=== PATIENT | female | born 1965 | race American Indian/Alaskan Native ===

== ENCOUNTER 2016-11-14 02:29 | Inpatient (IN) | payer BC ==
[2016-11-14 04:13] LABS: Basophils % (Auto) 0.2 % (0.0-1.8); Eosinophils % (Auto) 0.4 % (0.0-4.3); Hemoglobin 12.8 gm/dl (10.1-14.3); White Blood Count 12.6 K/mm3 (4.5-11.0)
[2016-11-14 04:34] LABS: Anion Gap 18 mmol/L; BUN/Creatinine Ratio 12.85; Blood Urea Nitrogen 9 mg/dL (7-17); Calcium 9.1 mg/dL (8.4-10.2); Carbon Dioxide 27 mmol/L (22-30); Chloride 97.8 mmol/L (98-107); Glucose 408 mg/dL (65-100); Hematocrit 39.3 % (30.3-42.9); Mean Corpuscular HGB Conc 32 % (30-34); Mean Corpuscular Hemoglobin 26 pg (28-32); Mean Corpuscular Volume 82 fl (79-97); Platelet Count 211 K/mm3 (140-440); Potassium 4.5 mmol/L (3.6-5.0); Red Blood Count 4.77 M/mm3 (3.65-5.03); Red Cell Distribution Width 14.5 % (13.2-15.2); Sodium 138 mmol/L (137-145)
[2016-11-14] MEDS ORDERED: ZOFRAN IV ONE (05:10)
[2016-11-14] MEDS ORDERED: MORPHINE IV ONE (05:10)
--- NOTE | 2016-11-14 05:10 | Emergency Department Report ---
ED Chest Pain HPI - General Chief Complaint: Chest Pain Stated Complaint: CHEST PAIN Time Seen by Provider: 11/14/16 04:13 Source: patient, old records reviewed (no previous record for review) Mode of arrival: Stretcher Limitations: No Limitations - History of Present Illness Initial Comments: 51-year-old female with a past medical history of CVA without residual defects, diabetes, GERD, hypertension, CAD with stent 2 presents to the hospital with chest pain that woke him from sleep. Pain is in the middle of the chest radiates to the left side. Described as pressure, intermittent, rated 8/10 intensity, and radiating to the back. No reported aggravating or alleviating factors. Positive social shortness of breath and nausea without vomiting. Patient's compliant with her medication. She received nitroglycerin and aspirin in route with minimal improvement. 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 Last cardiac cath was 2004 during her last heart attack. - Related Data Allergies Allergy/AdvReac Type Severity Reaction Status Date / Time Penicillins Allergy Shortness Verified 11/14/16 03:28 of Breath Sulfa (Sulfonamide Allergy Rash Verified 11/14/16 03:28 Antibiotics) LAURENT score - Laurent Score Age > 65: (0) No Aspirin use within the Past 7 Days: (1) Yes 3 or more CAD Risk Factors: (0) No 2 or more Angina events in past 24 hrs: (1) Yes Known CAD with more than 50% Stenosis: (1) Yes Elevated Cardiac Markers: (0) No ST Deviation Greater than 0.5mm: (0) No LAURENT Score: 3 ED Review of Systems ROS: Stated complaint: CHEST PAIN Other details as noted in HPI Comment: All other systems reviewed and negative Other: Constitutional: No fevers chills Eyes: No eye pain visual changes ENT: No ear pain or throat pain Neck: Denies pain Respiratory: Denies cough wheezing Cardiovascular: as per hpi GI: Denies abdominal pain : Denies dysuria Musculoskeletal: Denies back pain Skin: Denies rash, lesions, erythema Neurologic: Denies headache, numbness, weakness Psychiatric: Denies suicidal ideation, hallucinations ED Past Medical Hx - Past Medical History Previous Medical History?: Yes Hx Hypertension: Yes Hx CVA: Yes (no residual deficits 2012) Hx Diabetes: Yes Hx GERD: Yes Hx HIV: Yes - Surgical History Past Surgical History?: Yes Additional Surgical History: tubal ligation - Social History Smoking Status: Never Smoker Substance Use Type: None ED Physical Exam - General Limitations: No Limitations - Other Other exam information: General: No limitations, patient is alert in no acute distress Head exam: Atraumatic, normocephalic Eyes exam: Normal appearance, pupils equal reactive to light, extraocular movements intact ENT: Moist mucous membrane, normal oropharynx Neck exam: Normal inspection, full range of motion, no meningismus nontender Respiratory exam: Clear to auscultation bilateral, no wheezes, rales, crackles Cardiovascular: Mild tachycardic regular rhythm, sternal chest wall tenderness Abdomen: Soft, nondistended, and nontender, with normal bowel sounds, no rebound, or guarding Extremity: Full range of motion normal inspection no deformity, no calf tenderness or edema Back: Normal Inspection, full range of motion, no tenderness Neurologic: Alert, oriented x3, cranial nerves intact, no motor or sensory deficit Psychiatric: normal affect, normal mood Skin: Warm, dry, intact ED Course Vital Signs 11/14/16 11/14/16 11/14/16 03:19 03:20 03:28 Temperature 98.8 F Pulse Rate 114 H Respiratory 18 Rate Blood Pressure 159/86 159/86 O2 Sat by Pulse 92 93 99 Oximetry 11/14/16 11/14/16 03:30 03:33 Temperature Pulse Rate 108 H 106 H Respiratory 16 Rate Blood Pressure 152/83 O2 Sat by Pulse 95 Oximetry - Reevaluation(s) Reevaluation #1: 11/14/16 05:10 Patient resting but chest wall is tender. Morphine and Zofran ordered for pain. ED Medical Decision Making - Lab Data Result diagrams: 11/14/16 03:59 11/14/16 03:59 Lab Results 11/14/16 11/14/16 Range/Units 03:59 03:59 WBC 12.6 H (4.5-11.0) K/mm3 RBC 4.77 (3.65-5.03) M/mm3 Hgb 12.8 (10.1-14.3) gm/dl Hct 39.3 (30.3-42.9) % MCV 82 (79-97) fl MCH 26 L (28-32) pg MCHC 32 (30-34) % RDW 14.5 (13.2-15.2) % Plt Count 211 (140-440) K/mm3 Lymph % (Auto) 13.1 L (13.4-35.0) % [place] % (Auto) 5.9 (0.0-7.3) % Eos % (Auto) 0.4 (0.0-4.3) % Baso % (Auto) 0.2 (0.0-1.8) % Lymph # 1.7 (1.2-5.4) K/mm3 [place] # 0.7 (0.0-0.8) K/mm3 Eos # 0.0 (0.0-0.4) K/mm3 Baso # 0.0 (0.0-0.1) K/mm3 Seg Neutrophils % 80.4 H (40.0-70.0) % Seg Neutrophils # 10.2 H (1.8-7.7) K/mm3 Sodium 138 (137-145) mmol/L Potassium 4.5 (3.6-5.0) mmol/L Chloride 97.8 L (98-107) mmol/L Carbon Dioxide 27 (22-30) mmol/L Anion Gap 18 mmol/L BUN 9 (7-17) mg/dL Creatinine 0.7 (0.7-1.2) mg/dL Estimated GFR > 60 ml/min BUN/Creatinine Ratio 12.85 % Glucose 408 H (65-100) mg/dL Calcium 9.1 (8.4-10.2) mg/dL Troponin T < 0.010 (0.00-0.029) ng/mL - EKG Data -: EKG Interpreted by Me (sinus tachy 107) - EKG Data When compared to previous EKG there are: previous EKG unavailable - Medical Decision Making Intermittent patient to the hospital for chest pain given significant cardiac history. Regular insulin, Morphine, zofran, and Nitropaste ordered - Differential Diagnosis mi, stable angina, costochondritis, PE, 8 which is Critical Care Time: No Critical care attestation.: If time is entered above; I have spent that time in minutes in the direct care of this critically ill patient, excluding procedure time. ED Disposition Clinical Impression: Chest pain, Hx of heart artery stent, HTN (hypertension), Diabetes, Obesity Disposition: OP ADMITTED IP TO THIS HOSP Is pt being admited?: Yes Condition: Stable Time of Disposition: 05:14 (Dr Kent/hosp)
[2016-11-14] MEDS ORDERED: NITRO-BID 2% TP ONE ×2 (05:13→06:32)
[2016-11-14] MEDS ORDERED: MORPHINE ONE (06:28)
[2016-11-14] MEDS ORDERED: NOVOLOG SUB-Q ONE (06:29)
[2016-11-14] MEDS ORDERED: ZOFRAN ONE (06:31)
--- NOTE | 2016-11-14 07:12 | Admit Criteria Form ---
Admission Criteria Documentation: CHEST PAIN Clinical Indications for Admission to Inpatient Care (Place 'X' for any and all applicable criteria): Admission is indicated for chest pain and ANY ONE of the following(1)(2)(3)(4)(5 ): [ ]I. Angina with acute coronary syndrome (Also use Myocardial Infarction or Angina guideline) [ ]II. Hemodynamic instability [X]III. Angina needing acute intervention as indicated by ALL of the following( 11)(12): [X]a) Unstable angina is present as indicated by angina that is ANY ONE of the following: [ ]i) New onset [X]ii) Nocturnal [ ]iii) Prolonged at rest [ ]iv) Progressive [X]b) Angina warrants acute intervention as indicated by ANY ONE of the following: [ ]i Recurrent angina (e.g, not responding as previously to treatment) [X]ii) Angina at rest or with low-level activities despite initial medical therapy [ ]iii) New or presumably new ST-segment depression on ECG [ ]iv) Signs or symptoms of heart failure (eg, dyspnea, pulmonary edema) [ ]v) New or worsening mitral regurgitation [ ]vi) Hemodynamic instability [ ]vii) Dangerous arrhythmia (eg, sustained ventricular tachycardia) [ ]viii) History of percutaneous coronary intervention within 6 months [ ]ix) History of coronary artery bypass graft surgery [X]x) LAURENT risk score of 2 or greater[A] [X]xi) History of Diabetes(14) [ ]xii) High-risk cardiac ischemia findings on noninvasive testing (e.g, echocardiogram, treadmill testing, nuclear scan) [ ]xiii) Chronic renal insufficiency (ie, estimated GFR less than 60 mL/min/1.732m) [ ]xiv) Left ventricular ejection fraction less than 40% [ ]IV. Evidence of CT (eg, cardiac biomarkers positive, ST-segment elevation on ECG) also use Myocardial Infarction Criteria Form. [ ]V. Pulmonary edema [ ]. Respiratory distress [ ]VII. Chest pain indicative of serious diagnosis other than coronary artery disease (eg, aortic dissection) [ ]VIII. Contraindications and/or Inappropriate clinical situations for Observational Care in patients with Chest Pain, when ANY ONE of the following is required: [ ]a) Patient with risk factor for pulmonary embolism, acute coronary syndrome and myocardial infarction (18) [ ]b) Patient with Pulmonary embolism require an average LOS of 4.3 days, therefore emergency department observation management is inappropriate 18,23 [ ]c) Painful condition/s in the elderly, have the highest rate of recidivism after emergency department observation management (10.8%) 20,21,22 [ ]d) Elevated cardiac biomarker requires intensive and exhaustive care (19) [ ]IX. General contraindications and/or Inappropriate clinical situations for Observational Care in patients with Chest Pain, when ANY ONE of the following is required: [ ]a) Prediction of prolongation of LOS based on ANY ONE of the following may be considered as a contraindication for observational care 2, 3, 4, 5, 6, 7, 8, 9, 10, 11 [ ]i) Age > 65 yrs. [ ]ii) Patient arriving by ambulance [ ]iii) Patient with high acuity [ ]iv) Patient requiring vital sign monitoring [ ]v) Patient on IV medication [ ]b) Systolic blood pressures 180mmHg 3,12 [ ]c) Patient with altered mental status including delirium and other alteration of consciousness, (3) [ ]d) Patient whose discharge disposition will be to a [facility] home or rehabilitation home should not be managed in Emergency Department Observation Unit. CMS rule requires 3 days hospital stay before such placement. 3,13 [ ]e) Patient with failure to thrive due to broad array of etiologies 3,16,17 [ ]f) Inability to ambulate 3,14 Extended stay beyond goal length of stay may be needed for (1)(28): [ ]a) Specific condition diagnosed after evaluation (eg, pulmonary embolism, aortic dissection) [ ]b) Unstable angina [ ]c) Continued suspicion of acute coronary syndrome with inability to complete needed cardiac evaluation (eg, patient clinically unable to undergo stress testing) [ ]d) Myocardial infarction (Contents from ANGINA and CHEST PAIN clinical indications for admission to inpatient care have been integrated in this form) The original [employer] content created by [employer] has been revised. The portions of the content which have been revised are identified through the use of italic text or in bold, and [facility] has neither reviewed nor approved the modified material. All other unmodified content is copyright [employer]. Please see references footnoted in the original [facility] edition 2016 Admission Criteria Met: Yes
--- NOTE | 2016-11-14 07:24 | XRay Report ---
AP CHEST: HISTORY: chest pain AP view of the chest demonstrates a normal mediastinal and cardiac contour with clear lungs and normal bony and soft tissue structures. IMPRESSION: Unremarkable AP chest.
[2016-11-14] MEDS ORDERED: MORPHINE IV PRN (12:13)
[2016-11-14] MEDS ORDERED: DULCOLAX PR PRN (12:13)
[2016-11-14] MEDS ORDERED: ZOFRAN IV PRN (12:13)
[2016-11-14] MEDS ORDERED: SODIUM CHLORIDE FLUSH SYRINGE 10 ML IV PRN (12:13)
[2016-11-14] MEDS ORDERED: TYLENOL PO PRN (12:13)
[2016-11-14] MEDS ORDERED: MILK OF MAGNESIA PO PRN (12:13)
[2016-11-14] MEDS ORDERED: D50W (25GM) IV PRN ×2 (12:13→18:36)
--- NOTE | 2016-11-14 12:20 | History and Physical Report ---
History of Present Illness Date of examination: 11/14/16 Date of admission: 11/14/16 05:15 Chief complaint: cp History of present illness: 51-year-old female with a past medical history of CVA without residual defects, diabetes, GERD, hypertension, CAD with stent 2 presents to the hospital with chest pain that woke him from sleep. Pain is in the middle of the chest radiates to the left side. The pain is described as pressure, intermittent, rated 8/10 intensity and radiating to the back. No reported aggravating or alleviating factors. Patient reports some associated shortness of breath, PND and orthopnea. Patient also reports some mild lower extremity swelling. Patient's states that she has compliant with her medication. She received nitroglycerin and aspirin in route with minimal improvement. Patient reports CA 2, stents 2 in 2006. Patient states that her last stress test was last summer and noted be normal. 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 Neeraj Collazo. Past History Past Medical History: diabetes, GERD, hypertension Past Surgical History: denies: PTCA (stent X 2) Social history: no significant social history Family history: no significant family history Medications and Allergies Allergies Allergy/AdvReac Type Severity Reaction Status Date / Time Penicillins Allergy Shortness Verified 11/14/16 03:28 of Breath Sulfa (Sulfonamide Allergy Rash Verified 11/14/16 03:28 Antibiotics) Home Medications Medication Instructions Recorded Confirmed Last Taken Type Aspirin [Aspirin TAB] 325 mg PO QDAY 11/14/16 11/14/16 Unknown History AtorvaSTATin [Lipitor] 40 mg PO QHS 11/14/16 11/14/16 Unknown History Furosemide [Lasix TAB] 40 mg PO QDAY 11/14/16 11/14/16 Unknown History Lisinopril [Zestril] 40 mg PO DAILY 11/14/16 11/14/16 Unknown History Potassium Chloride [K-Dur] 10 meq PO QDAY 11/14/16 11/14/16 Unknown History metFORMIN [Glucophage] 500 mg PO BID 11/14/16 11/14/16 Unknown History Review of Systems All systems: negative Exam - Constitutional Vitals: Temp Pulse Resp BP Pulse Ox 98.6 F 97 H 18 121/58 93 11/14/16 10:59 11/14/16 10:59 11/14/16 10:59 11/14/16 10:59 11/14/16 10:59 General appearance: Present: no acute distress, well-nourished - EENT Eyes: Present: PERRL ENT: hearing intact, clear oral mucosa - Neck Neck: Present: supple, normal ROM - Respiratory Respiratory effort: normal Respiratory: bilateral: CTA - Cardiovascular Heart Sounds: Present: S1 & S2. Absent: rub, click - Extremities Extremities: pulses symmetrical, No edema Peripheral Pulses: within normal limits - Abdominal General gastrointestinal: Present: soft, non-tender, non-distended, normal bowel sounds Female genitourinary: Present: normal - Integumentary Integumentary: Present: clear, warm, dry - Musculoskeletal Musculoskeletal: gait normal, strength equal bilaterally - Psychiatric Psychiatric: appropriate mood/affect, intact judgment & insight - Neurologic Neurologic: CNII-XII intact, moves all extremities Results - Labs CBC & Chem 7: 11/14/16 03:59 11/14/16 03:59 Labs: Laboratory Last Values WBC 12.6 K/mm3 (4.5-11.0) H 11/14/16 03:59 RBC 4.77 M/mm3 (3.65-5.03) 11/14/16 03:59 Hgb 12.8 gm/dl (10.1-14.3) 11/14/16 03:59 Hct 39.3 % (30.3-42.9) 11/14/16 03:59 MCV 82 fl (79-97) 11/14/16 03:59 MCH 26 pg (28-32) L 11/14/16 03:59 MCHC 32 % (30-34) 11/14/16 03:59 RDW 14.5 % (13.2-15.2) 11/14/16 03:59 Plt Count 211 K/mm3 (140-440) 11/14/16 03:59 Lymph % (Auto) 13.1 % (13.4-35.0) L 11/14/16 03:59 [place] % (Auto) 5.9 % (0.0-7.3) 11/14/16 03:59 Eos % (Auto) 0.4 % (0.0-4.3) 11/14/16 03:59 Baso % (Auto) 0.2 % (0.0-1.8) 11/14/16 03:59 Lymph # 1.7 K/mm3 (1.2-5.4) 11/14/16 03:59 [place] # 0.7 K/mm3 (0.0-0.8) 11/14/16 03:59 Eos # 0.0 K/mm3 (0.0-0.4) 11/14/16 03:59 Baso # 0.0 K/mm3 (0.0-0.1) 11/14/16 03:59 Seg Neutrophils % 80.4 % (40.0-70.0) H 11/14/16 03:59 Seg Neutrophils # 10.2 K/mm3 (1.8-7.7) H 11/14/16 03:59 Sodium 138 mmol/L (137-145) 11/14/16 03:59 Potassium 4.5 mmol/L (3.6-5.0) 11/14/16 03:59 Chloride 97.8 mmol/L (98-107) L 11/14/16 03:59 Carbon Dioxide 27 mmol/L (22-30) 11/14/16 03:59 Anion Gap 18 mmol/L 11/14/16 03:59 BUN 9 mg/dL (7-17) 11/14/16 03:59 Creatinine 0.7 mg/dL (0.7-1.2) 11/14/16 03:59 Estimated GFR > 60 ml/min 11/14/16 03:59 BUN/Creatinine Ratio 12.85 % 11/14/16 03:59 Glucose 408 mg/dL (65-100) H 11/14/16 03:59 POC Glucose 421 (70-105) H 11/14/16 06:25 Calcium 9.1 mg/dL (8.4-10.2) 11/14/16 03:59 Troponin T < 0.010 ng/mL (0.00-0.029) 11/14/16 10:14 Assessment and Plan Assessment and plan: 1. Chest pain. Patient with history of coronary artery disease (s/p CA ans stents). We will plan for stress thallium and echocardiogram. Cardiology consultation. 2. Hypertension. Resume antihypertensive medications. 3. Diabetes mellitus type 2. Continue Accu-Cheks and sliding scale as well. 4. GERD. Continue medications. 5. DVT prophylaxis.
[2016-11-14 13:46] LABS: Creatine Kinase 54 units/L (30-135)
[2016-11-14 13:55] LABS: Creatine Kinase MB < 1.0 ng/mL (0.0-4.0)
[2016-11-14] MEDS ORDERED: FLUARIX QUAD 2016-2017(36 MOS+) IM ONE (14:00)
--- NOTE | 2016-11-14 14:37 | Consultation ---
History of Present Illness Consult date: 11/14/16 Requesting physician: SONI MAO Consult reason: chest pain History of present illness: The patient is a 51-year-old female with a history of CAD s/p PCI, hypertension , diabetes, GERD who presented with complaints of chest pain that awoke her from sleep this morning. Pain is in the middle of the chest and radiates to her left chest and back. Pain is intermittent, described as "pressure." Associated with shortness of breath and orthopnea. No exacerbating or relieving factors. Troponin negative x 3. Cardiac PET done at [facility] 08/2012 was negative for ischemia. Past History Past Medical History: CAD, diabetes, GERD, hypertension, hyperlipidemia Past Surgical History: PTCA (stent X 2) Social history: no significant social history, full code. denies: smoking, alcohol abuse, prescription drug abuse, IV drug use Family history: no significant family history Medications and Allergies Allergies Allergy/AdvReac Type Severity Reaction Status Date / Time Penicillins Allergy Shortness Verified 11/14/16 03:28 of Breath Sulfa (Sulfonamide Allergy Rash Verified 11/14/16 03:28 Antibiotics) Home Medications Medication Instructions Recorded Confirmed Last Taken Type Aspirin [Aspirin TAB] 325 mg PO QDAY 11/14/16 11/14/16 Unknown History AtorvaSTATin [Lipitor] 40 mg PO QHS 11/14/16 11/14/16 Unknown History Furosemide [Lasix TAB] 40 mg PO QDAY 11/14/16 11/14/16 Unknown History Lisinopril [Zestril] 40 mg PO DAILY 11/14/16 11/14/16 Unknown History Potassium Chloride [K-Dur] 10 meq PO QDAY 11/14/16 11/14/16 Unknown History metFORMIN [Glucophage] 500 mg PO BID 11/14/16 11/14/16 Unknown History Active Meds: Active Medications Acetaminophen (Tylenol) 650 mg PO Q4H PRN PRN Reason: Pain MILD(1-3)/Fever >100.5/HASTINGS Bisacodyl (Dulcolax) 10 mg DE QDAY PRN PRN Reason: Constipation unrelieved by MOM Dextrose (D50w (25gm)) 50 ml IV PRN PRN PRN Reason: Hypoglycemia Enoxaparin Sodium (Lovenox) 40 mg SUB-Q QDAY JACKSON Famotidine (Pepcid) 20 mg IV BID [place] Magnesium Hydroxide (Milk Of Magnesia) 30 ml PO Q4H PRN PRN Reason: Constipation Morphine Sulfate (Morphine) 2 mg IV Q4H PRN PRN Reason: Pain, Moderate (4-6) Ondansetron HCl (Zofran) 4 mg IV Q8H PRN PRN Reason: N/V unrelieved by Reglan Sodium Chloride (Sodium Chloride Flush Syringe 10 Ml) 10 ml IV PRN PRN PRN Reason: LINE FLUSH Review of Systems Constitutional: no fever, no chills Ears, nose, mouth and throat: no nasal congestion, no nasal discharge, no sinus pressure Cardiovascular: chest pain, orthopnea, shortness of breath, no palpitations Respiratory: shortness of breath, no cough, no congestion, no wheezing Gastrointestinal: no vomiting, no diarrhea, no constipation Genitourinary Female: no dysuria, no urgency Musculoskeletal: no neck stiffness, no neck pain, no myalgias Integumentary: no rash, no pruritis Neurological: no parathesias, no numbness, no tingling Endocrine: no cold intolerance, no heat intolerance Hematologic/Lymphatic: no easy bruising, no easy bleeding Allergic/Immunologic: no urticaria, no wheezing Physical Examination Last Vital Signs Temp 98.6 F 11/14/16 10:59 Pulse 97 H 11/14/16 10:59 Resp 18 11/14/16 10:59 BP 121/58 11/14/16 10:59 Pulse Ox 93 11/14/16 10:59 General appearance: no acute distress, obese HEENT: Positive: Normocephaly, Mucus Membranes Moist Neck: Positive: neck supple, trachea midline Cardiac: Positive: Reg Rate and Rhythm, S1/S2 Lungs: Positive: clear to auscultation Neuro: Positive: Grossly Intact Abdomen: Positive: Soft, Active Bowel Sounds. Negative: Tender Skin: Positive: Clear. Negative: Rash Extremities: Present: normal. Absent: edema Results 11/14/16 03:59 11/14/16 03:59 Cardiac Enzymes 11/14/16 Range/Units 12:41 CK-MB (CK-2) < 1.0 (0.0-4.0) ng/mL - Imaging and Cardiology EKG: image reviewed EKG interpretations - Telemetry EKG Rhythm: Sinus Rhythm - EKG Sinus rhythms and dysrhythmias: sinus tachycardia Assessment and Plan Chest pain troponin negative x 3 no acute EKG changes PET [facility] 08/2012: no ischemia Lexiscan thallium stress test in am CAD s/p PCI (2006) continue ASA, statin Hypertension stable continue lisinopril Diabetes Obesity Lexiscan thallium stress test in am. Further recommendations to follow. The patient has been seen in conjunction with Dr. Kenney who agrees with the assessment and plan of care. Thank you Dr. Mao for allowing us to participate in the care of these patients.
[2016-11-14 17:12] LABS: Creatine Kinase 58 units/L (30-135)
[2016-11-14 17:17] LABS: Creatine Kinase MB < 1.0 ng/mL (0.0-4.0)
[2016-11-14 19:21] LABS: Creatine Kinase 54 units/L (30-135)
[2016-11-14 19:36] LABS: Creatine Kinase MB < 1.0 ng/mL (0.0-4.0)
[2016-11-14] MEDS: PEPCID IV SCH (21:14)
[2016-11-14] MEDS: NOVOLOG SUB-Q SCH (22:40)
[2016-11-15 08:16] LABS: Basophils % (Auto) 0.2 % (0.0-1.8); Hematocrit 38.2 % (30.3-42.9); Hemoglobin 11.8 gm/dl (10.1-14.3); Mean Corpuscular HGB Conc 31 % (30-34); Mean Corpuscular Volume 83 fl (79-97); Platelet Count 199 K/mm3 (140-440); Red Cell Distribution Width 14.7 % (13.2-15.2); White Blood Count 8.5 K/mm3 (4.5-11.0)
[2016-11-15 08:22] LABS: Anion Gap 15 mmol/L; BUN/Creatinine Ratio 15.71; Blood Urea Nitrogen 11 mg/dL (7-17); Carbon Dioxide 27 mmol/L (22-30); Chloride 100.3 mmol/L (98-107); Glucose 222 mg/dL (65-100); Potassium 4.1 mmol/L (3.6-5.0); Sodium 138 mmol/L (137-145)
[2016-11-15 08:23] LABS: Mean Corpuscular Hemoglobin 26 pg (28-32)
--- NOTE | 2016-11-15 08:46 | Progress Note ---
Assessment and Plan Chest pain troponin negative x 3 no acute EKG changes PET MPI 08/2012: no ischemia stress MPI: small, mild fixed mid inferior wall defect, no significant ischemia CAD s/p PCI (2006) continue ASA, statin Hypertension stable continue lisinopril Diabetes Obesity Stress test revealed a small, mild fixed mid inferior wall defect. Recommend continuing medical management and aggressive risk factor modification. Patient may be discharged from a cardiac standpoint. The patient has been seen in conjunction with Dr. North who agrees with the assessment and plan of care. Subjective Date of service: 11/15/16 Principal diagnosis: chest pain Interval history: The patient is resting comfortably in bed. She continues to c/o intermittent chest pain. Sinus rhythm on the monitor. Objective Last Vital Signs Temp 98.6 F 11/15/16 08:00 Pulse 95 H 11/15/16 08:00 Resp 20 11/15/16 08:00 BP 125/74 11/15/16 08:00 Pulse Ox 95 11/15/16 08:00 - Physical Examination General: No Apparent Distress HEENT: Positive: Normocephaly, Mucus Membranes Moist Neck: Positive: neck supple, trachea midline Cardiac: Positive: Reg Rate and Rhythm, S1/S2 Lungs: Positive: clear to auscultation Neuro: Positive: Grossly Intact Abdomen: Positive: Soft, Active Bowel Sounds. Negative: Tender Skin: Positive: Clear. Negative: Rash Extremities: Present: normal. Absent: edema - Labs and Meds Cardiac Enzymes 11/14/16 11/14/16 11/14/16 Range/Units 12:41 16:02 18:36 CK-MB (CK-2) < 1.0 < 1.0 < 1.0 (0.0-4.0) ng/mL CBC 11/15/16 Range/Units 07:16 WBC 8.5 (4.5-11.0) K/mm3 RBC 4.60 (3.65-5.03) M/mm3 Hgb 11.8 (10.1-14.3) gm/dl Hct 38.2 (30.3-42.9) % Plt Count 199 (140-440) K/mm3 Lymph # 4.0 (1.2-5.4) K/mm3 [place] # 0.4 (0.0-0.8) K/mm3 Eos # 0.1 (0.0-0.4) K/mm3 Baso # 0.0 (0.0-0.1) K/mm3 Comprehensive Metabolic Panel 11/15/16 Range/Units 07:16 Sodium 138 (137-145) mmol/L Potassium 4.1 (3.6-5.0) mmol/L Chloride 100.3 (98-107) mmol/L Carbon Dioxide 27 (22-30) mmol/L BUN 11 (7-17) mg/dL Creatinine 0.7 (0.7-1.2) mg/dL Glucose 222 H (65-100) mg/dL Calcium 9.0 (8.4-10.2) mg/dL - Imaging and Cardiology EKG: image reviewed Echo: pending - Telemetry EKG Rhythm: Sinus Rhythm - EKG Sinus rhythms and dysrhythmias: sinus tachycardia
[2016-11-15] MEDS: NOVOLOG SUB-Q SCH ×2 (08:54→11:30)
[2016-11-15 09:47] LABS: Cholesterol 176 mg/dL (50-199); HDL Cholesterol 44 mg/dL (40-59); LDL Cholesterol,Direct 113 mg/dL (50-130); Triglycerides 95 mg/dL (2-149)
[2016-11-15] MEDS ORDERED: ZESTRIL PO SCH (10:00)
[2016-11-15] MEDS ORDERED: LOVENOX SUB-Q SCH (10:00)
[2016-11-15] MEDS ORDERED: ASPIRIN PO SCH (10:00)
[2016-11-15] MEDS ORDERED: LEXISCAN IV ONE ×2 (11:14→11:23)
--- NOTE | 2016-11-15 12:38 | Discharge Summary ---
Providers - Providers Date of Admission: 11/14/16 05:15 Date of discharge: 11/15/16 Attending physician: SONI BAKER 11/14/16 Consult to Cardiac Rehabilitation [CONS] Routine Reason For Exam: Phase I 11/14/16 12:13 Consult to Physician [CONS] Routine Consulting Provider: DB ELLIS Reason For Exam: cp, cad Place consult to:: [email or web address] Notified:: yes Phone number called:: on floor Was contact made?: Yes If yes, spoke with:: Time called:: 12:31 Primary care physician: [employer] Hospitalization Reason for admission: CP Condition: Stable Hospital course: The patient is a 51-year-old female with a history of CAD s/p PCI, hypertension , diabetes, GERD who presented with complaints of chest pain that awoke her from sleep the morning prior to admission. Pain was in the middle of the chest and radiated to her left chest and back. Pain was intermittent, described as "pressure." Patient's pain was associated with shortness of breath and orthopnea. No exacerbating or relieving factors. Troponin negative x 3. Cardiac PET done at [place] 08/2012 was negative for ischemia. No acute EKG changes. Patient with stress thallium which was found to be negative. Patient was felt to have received maximal hospital benefit and will be discharged home. Etiology of chest pain sort of the atypical likely related to GERD. Dedicated discharge time 35 minutes. Disposition: DISCHARGED TO HOME OR SELFCARE Time spent for discharge: 35 Core Measure Documentation - Palliative Care Palliative Care/ Comfort Measures: Not Applicable - Core Measures Any of the following diagnoses?: none Exam - Constitutional Vitals: Temp Pulse Resp BP Pulse Ox 98.6 F 96 H 20 161/87 95 11/15/16 08:00 11/15/16 12:03 11/15/16 08:00 11/15/16 12:03 11/15/16 08:00 General appearance: Present: no acute distress, well-nourished - EENT Eyes: Present: PERRL ENT: hearing intact, clear oral mucosa - Neck Neck: Present: supple, normal ROM - Respiratory Respiratory effort: normal Respiratory: bilateral: CTA - Cardiovascular Heart Sounds: Present: S1 & S2. Absent: rub, click - Extremities Extremities: pulses symmetrical, No edema Peripheral Pulses: within normal limits - Abdominal General gastrointestinal: Present: soft, non-tender, non-distended, normal bowel sounds Female genitourinary: Present: normal - Integumentary Integumentary: Present: clear, warm, dry - Musculoskeletal Musculoskeletal: gait normal, strength equal bilaterally - Psychiatric Psychiatric: appropriate mood/affect, intact judgment & insight - Neurologic Neurologic: CNII-XII intact, moves all extremities Plan Activity: no restrictions Weight Bearing Status: Weight Bear as Tolerated Diet: low fat, low cholesterol, low salt, diabetic Prescriptions: Aspirin [Aspirin TAB] 325 mg PO QDAY #30 tablet AtorvaSTATin [Lipitor] 40 mg PO QHS #30 tablet Furosemide [Lasix TAB] 40 mg PO QDAY #30 tablet Lisinopril [Zestril] 40 mg PO DAILY #30 tablet metFORMIN [Glucophage] 500 mg PO BID #60 tablet Potassium Chloride [K-Dur] 10 meq PO QDAY #30 tablet
[2016-11-15] MEDS: PEPCID IV SCH (13:35)
[2016-11-15 13:36] VITALS: BP 142/78
--- NOTE | 2016-11-15 14:04 | Treadmill Report ---
MYOCARDIAL PERFUSION SCAN REFERRING PHYSICIAN: Rhett Mao MD DESCRIPTION OF PROCEDURE: The patient received 10 mCi of technetium 99m Myoview intravenously under resting condition. Resting myocardial perfusion scan was done. Subsequently, the patient underwent Lexiscan stress test as per the protocol. During Lexiscan stress, the patient received 28 mCi of technetium 99m Myoview intravenously. After 30-60 minutes, post stress images were done. Computerized reconstruction images were performed. The post-stress images revealed small mild mid inferior wall perfusion defect. Gated study did not reveal any wall motion abnormality. The left ventricular ejection fraction was low normal and was calculated to be 53%. The resting images again revealed the perfusion defect seen in the stress images. CONCLUSION: 1. Small mild fixed mid inferior wall perfusion defect. 2. Gated study did not reveal any wall motion abnormality. 3. Low normal left ventricular systolic function with ejection fraction of 53%. [facility]# [id number] [facility]ITALJohny
== END 2016-11-15 14:20 | disposition home or self-care (01) | DRG 392 ==
LOC: ED 02:29 → 4A 05:15
PROVIDERS: ADMIT Internal Medicine; ATTEND Hospitalist
DX: K21.9 Gastro-esophageal reflux disease without esophagitis (principal); Z68.42 Body mass index [BMI] 45.0-49.9, adult; E11.9 Type 2 diabetes mellitus without complications; E66.9 Obesity, unspecified; I25.10 Atherosclerotic heart disease of native coronary artery without angina pectoris; I10 Essential (primary) hypertension; Z86.73 Personal history of transient ischemic attack (TIA), and cerebral infarction without residual deficits; Z88.0 Allergy status to penicillin; Z95.5 Presence of coronary angioplasty implant and graft; Z88.2 Allergy status to sulfonamides; Z98.51 Tubal ligation status; Z79.82 Long term (current) use of aspirin; Z79.899 Other long term (current) drug therapy
CPT/HCPCS: 36415; 71010; 78452; 80048; 80061; 82550; 82553; 82962; 84484; 85025; 90686; 93005; 93010; 93017; 93306; 96374; 96375; A9270-GY; A9502; J1650; J1815; J2270; J2405; J2785